=== PATIENT | female | born 2000 | race Hispanic/Latino ===

== ENCOUNTER 2022-07-29 15:45 | Emergency (ER) | payer OTHER ==
[~2022-07-29] VITALS: Ht 165.1 cm; Wt 52.2 kg
[2022-07-29] MEDS ORDERED: PYRIDIUM200 MG PO (20:14)
== END 2022-07-29 20:28 | disposition home or self-care (01) ==
LOC: ED 15:45
DX: R30.0 Dysuria (principal); M54.50 Low back pain, unspecified; R10.30 Lower abdominal pain, unspecified; R35.0 Frequency of micturition
CPT/HCPCS: 36415; 80053; 81001; 84703; 85025; 99284; A9270